=== PATIENT | female | born 1975 | race Caucasian/White ===

== ENCOUNTER → 2020-08-25 | Outpatient (CLI) | payer BC, OTHER | LOC: SLEEP 14:33 | DX: G47.33 Obstructive sleep apnea (adult) (pediatric) (principal); G47.411 Narcolepsy with cataplexy | CPT/HCPCS: 95811 ==

== ENCOUNTER → 2020-08-26 | Outpatient (CLI) | payer BC, OTHER | LOC: SLEEP 08:00 | DX: G47.33 Obstructive sleep apnea (adult) (pediatric) (principal); G47.411 Narcolepsy with cataplexy | CPT/HCPCS: 95805 ==